=== PATIENT | female | born 1980 | race Caucasian/White ===

== ENCOUNTER 2017-03-08 20:07 | Emergency (ER) | payer SELFPAY ==
[~2017-03-08] VITALS: Ht 165.1 cm; Wt 83.9 kg
--- OUTSIDE RECORDS SUMMARY | 2017-03-08 20:45 | External Medical Summary Rpt | CCD ---
Author Author Conduent Organization Con[employer] Address Unknown Phone Unavailable Purpose Continuity of Care Document - through 2016
--- OUTSIDE RECORDS SUMMARY | 2017-03-08 20:45 | External Medical Summary Rpt | CCD ---
Author Author MAYELA Address Unknown Phone Purpose Continuity of Care Document - through 2016
--- OUTSIDE RECORDS SUMMARY | 2017-03-08 20:45 | External Medical Summary Rpt | CCD ---
Author Author MAYELA Address Unknown Phone [email or web address] Purpose Continuity of Care Document - through 2016
--- OUTSIDE RECORDS SUMMARY | 2017-03-08 20:46 | External Medical Summary Rpt ---
Author Author MAYELA Stewart, MAYELA Production Organization [employer] Address Unknown Phone Unavailable
--- OUTSIDE RECORDS SUMMARY | 2017-03-08 20:46 | External Medical Summary Rpt ---
Author Author MAYELA Stewart, MAYEAL Production Organization [employer] Address Unknown Phone Unavailable
--- OUTSIDE RECORDS SUMMARY | 2017-03-08 20:46 | External Medical Summary Rpt | CCD ---
Demographics Preferred Language Micronesian Marital Status Unknown Sabianist Affiliation Unknown Race Unknown Ethnic Group Unknown Author Author , MAYELA PEDRO Address Unknown Phone Immunization No patient found.
--- OUTSIDE RECORDS SUMMARY | 2017-03-08 20:46 | External Medical Summary Rpt | CCD ---
Demographics Preferred Language Azerbaijani Marital Status Unknown Denominational Affiliation Unknown Race Unknown Ethnic Group Unknown Author Author , MAYELA PEDRO Address Unknown Phone Immunization No patient found.
[2017-03-08 20:48] LABS: LYMPH # 2.3 K/mm3 (0.7-4.5); LYMPH % 29.7 % (10-50.0)
[2017-03-08 20:52] LABS: URINE BILIRUBIN - DIPSTICK NEGATIVE (NEG); URINE BLOOD 1+ (NEG)
--- NOTE | 2017-03-08 21:03 | Emergency Room Report ---
History of Present Illness Time Seen by 2000 Presenting Problem in Triage Pt arrived:Walked Presenting Problem:c/o vaginal bleeding and left sided abdominal pain since . Discharge has foul odor Onset of symptoms date/time:03/07/17/ or onset unknown for:MEDICAL HX UNKNOWN Treatment Prior to Arrival: COMPLIANCE REPRESENTATIVE Provided by: Sepsis Risk Assessment: Temp: 98 B/P: 136/74 MAP: 94 Pulse: 103 Resp: 18 Recent fever? N Clinical Suspician of Infection? Y Mental Status: 1 - Regular (Normal Baseline) Sepsis Risk:Possible Sepsis Risk Have you (or family members/close friends) recently traveled outside the [place]? N If Yes, where/when: Have you had exposure to infectious disease within the past month? N TB? Other? Specify: Source patient, RN notes reviewed, family, old records Exam Limitations no limitations Comment pt with lt lower abd pain with no fever or rash and has irreg vag bleeding Cardiac Chest Pain Chest pain indicative of cardiac No Timing/Duration this evening Severity moderate ALLERGIES Coded Allergies: Cephalosporins (03/08/17) Penicillins (03/08/17) cefaclor (03/08/17) History Medical History General CAD? No Angina: No AL: No Hypertension? No Hyperlipidemia? No CHF? No DVT? No PE? No COPD? No Asthma? No Anemia? Yes GERD? No Gastric ulcers? No GI Bleed? No Hernia? No Thyroid Problems? No Hypothyroidism? No CVA? No Seizures? No Diabetes? No Renal Insuffiency? No End Stage Renal Disease? No UTI? No Stones? No BPH? No GB Disease: No Nephritic Syndrome? No Asplenia? No Hepatitis? No Sickle Cell Disease? No Arthritis? No Migraines? No Cataracts? No Glaucoma? No MRSA? No HIV? No TB? No Anxiety? No Depression? No Cancer? 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 Respiratory denies cough, denies shortness of breath Cardiovascular denies chest pain, denies palpitations, denies syncope Gastrointestinal see HPI, abdominal pain, denies diarrhea, nausea, vomiting Genitourinary see HPI, discharge, abnormal vaginal bleeding. denies: dysuria, frequency, hesitancy, hematuria. Musculoskeletal denies back pain, denies neck pain Skin denies rash Psychiatric/Neurological denies headache, denies seizure Physical Exam Vital Signs Vital Signs Date Time Temp Pulse Resp B/P Pulse O2 O2 Flow FiO2 Ox Delivery Rate 03/08 2210 98.0 77 18 136/76 99 03/08 2038 18 03/08 2024 98.0 103 20 136/74 99 03/08 2011 98.0 103 20 136/74 99 - WBC >12,000 or <4,000 or 10% bands? 2 or more SIRS Criteria Met? B/P:136/74 MAP:94 Creatinine >2.0? UA output<0.5ml/kg/hr for 2 hrs? Platelet count >100,000? Lactate >2.0mmol/1? INR >1.2 or PTT > than 60 sec? Evidence of Organ Dysfunction? Provider documented clinical suspician of infection? Y Sepsis Criteria Count: 2 Sepsis Risk: Possible Sepsis Risk General Appearance no apparent distress Eye Exam - bilateral eye PERRL, bilateral eye EOMI Ear, Nose, Throat normal ENT inspection Neck supple Respiratory Status No: respiratory distress. Lung Sounds bilateral: lungs clear. Cardiovascular regular rate/rhythm Peripheral Pulses Pulses normal Yes Gastrointestinal soft, no organomegaly, no pulsatile mass, no guarding, no rebound, tenderness Back no CVA tenderness Extremities normal inspection Strength 4 Upper Ext (L), 4 Upper Ext (R), 4 Lower Ext (L), 4 Lower Ext (R) Pelvic normal external exam, tender w/ cervical motion, sl bleeding / no odor Nurse present during exam? Yes Neurologic alert, sports management internship II-XII nml as tested Reflexes Reflexes normal No Mental status normal mood/affect Skin intact Medical Decision Making LABS/Meds/Orders Pt receiving controlled substance in ED? No Results/Orders Laboratory Tests 03/08/172125: C.trachomatis DNA (RENZO) Pending, N.gonorrhoeae RNA Pending 03/08/172034: Lipase 151 03/08/172034: Lactic Acid 0.8 03/08/172034: Sodium 140, Potassium 3.7, Chloride 104, Carbon Dioxide 24, BUN 14, Creatinine 0.7, Estimated Creat Clear 149, Estimated GFR (MDRD) 95, Glucose 94, Calcium 9.3 , Total Bilirubin 0.4, AST 19, ALT 22, Alkaline Phosphatase 94, Total Protein 8.2, Albumin 4.4, Globulin 3.8 H, Albumin/Globulin Ratio 1.2, WBC 7.8, RBC 4.88 , Hgb 12.0 L, Hct 37.7, MCV 77.3 L, RDW 14.5, Plt Count 323, MPV 8.4, Gran % 60.6, Gran # 4.7, Lymphocytes % 29.7, Monocytes % 6.0, Eosinophils % 3.1, Basophils % 0.5, Lymphocytes # 2.3, Monocytes # 0.5, Eosinophils # 0.3, Basophils # 0.0, PUBS MCHC 31.8, MCH 24.6 L, Urine Color YELLOW, Urine Appearance CLEAR, Urine pH 6.0, Ur Specific [place] 1.020, Urine Protein NEGATIVE, Urine Ketones NEGATIVE, Urine Blood 1+ H, Urine Nitrate NEGATIVE, Urine Bilirubin NEGATIVE, Urine Urobilinogen 0.2, Ur Leukocyte Esterase NEGATIVE , Urine RBC 3-5, Ur Squamous Epith Cells 3-5, Amorphous Sediment TRACE, Urine Mucus TRACE, Urine Glucose NEGATIVE Current Medication Orders Sig/Li Start time Last Medication Dose Route Stop Time Status Admin Iopamidol 75 ML ONCE ONE 03/08 2230 UNV 03/08 IV 03/08 2231 2221 Sodium Chloride 10 ML PRN PRN 03/08 2230 UNV 03/08 IV 03/080 2221 Diatrizoate Meglum/ 30 ML ONCE ONE 03/08 2045 DC 03/08 Diatrizoate Sod PO 03/08 Ketorolac 30 MG ONCE ONE 03/08 2045 DC 03/08 Tromethamine IV 03/08 Ondansetron HCl 4 MG ONCE ONE 03/08 2045 DC 03/08 IV 03/08 Sodium Chloride 1,000 ML .Q1H1M 03/08 2045 DC 03/08 IV 03/08 Sodium Chloride 10 ML PRN PRN 03/08 2045 AC IV 03/09 2032 Sodium Chloride 10 ML PRN PRN 03/08 2045 AC IV 03/09 2034 Diatrizoate Meglum/ 0 .STK-MED ONE 03/08 2035 DC Diatrizoate Sod .ROUTE Ketorolac 0 .STK-MED ONE 03/08 2034 DC Tromethamine .ROUTE Ondansetron HCl 0 .STK-MED ONE 03/08 2034 DC .ROUTE Sodium Chloride 1,000 ML .STK-MED ONE 03/08 2034 DC IV Orders Procedure Date/time Status DIET-NOTHING BY MOUTH 03/[address] ABD & PELVIS W/ CONTRAST 03/08 2204 Active WET PREP 03/08 2157 Complete LIPASE 03/08 2157 Complete CHLAMYDIA/GC 03/[address] ABD/PELVIS REQ 03/08 2035 Active IV SALINE LOCK 03/08 2035 Active CULTURE, BLOOD 03/08 2035 Active URINALYSIS/COMPLETE 03/08 2035 Complete URINE 03/08 2035 Complete LACTIC ACID 03/08 2035 Complete CBC WITH AUTO DIFF 03/08 2035 Complete CHEM 12 PROFILE 03/08 2035 Complete XRAY/CT/US XRAY/CT/US CT abdomen, pelvis CT interpretation by reviewed by me Time results known: 2302 CT Results abnormal (see report) Departure Departure Time of Disposition 2299 Disposition DC Home or Self Care(routine) Clinical Impression Primary Impression: Pelvic pain Secondary Impressions: Cholelithiasis Qualifiers: Cholelithiasis location: gallbladder Cholecystitis presence: without cholecystitis Biliary obstruction: without biliary obstruction Qualified Code: K80.20 - Calculus of gallbladder without cholecystitis without obstruction Condition STABLE Referrals Antwan Montes MD discussed with dr montes Patient Instructions DI for Pelvic Pain Additional Instructions use meds and see pcp and dr montes for follow up Discharge Counseling Counseled pt/family regarding diagnosis, test results, medications/RX, follow up needs Prescriptions Current Visit Scripts Clindamycin Hcl (Clindamycin 300MG) 300 MG PO TID #30 CAP ED Critical Care Critical Care No at 2306
[2017-03-08] MEDS ORDERED: CLINDAMYCIN HC300 MG PO (23:06)
[2017-03-09 00:15] VITALS: BP 136/90
--- NOTE | 2017-03-09 05:21 | RADIOLOGY REPORT PS360 ---
CT ABD PELVIS W/ CONTRAST CLINICAL INDICATION: Abdominal pain, left lower quadrant pain, prior gastric bypass LLQ PAIN ORDERING PHYSICIAN: Venita Palma MD PATIENT AGE: 36 years COMPARISON: None TECHNIQUE: Axial images obtained with sagittal and coronal reformats. PROCEDURE: Oral Contrast: None IV Contrast: 75 mL's of Isovue-370 . FINDINGS: Lung base images are unremarkable. Liver, spleen, adrenal glands, pancreas, kidneys, ureters, and urinary bladder have an unremarkable appearance. Gallbladder is slightly distended with small stones. Scattered small lymph nodes are present in the retroperitoneum and right lower quadrant and mesenteric axis. Prior gastric bypass with postsurgical change. No evidence of appendicitis or diverticulitis. No pelvic mass or abnormal fluid collection. No abdominal wall hernia. No acute bony findings. IMPRESSION: 1. Distended gallbladder with cholelithiasis. This may be confirmed with ultrasound. 2. Prior gastric bypass. 3. Otherwise negative CT abdomen pelvis
[2017-03-11 03:41] LABS: Neisseria gonorrhoeae, NAA Negative (Negative)
== END 2017-03-09 00:15 | disposition home or self-care (01) ==
LOC: ER 20:07
PROVIDERS: Emergency Medicine
DX: R52 Pain, unspecified (principal); R10.2 Pelvic and perineal pain; K80.20 Calculus of gallbladder without cholecystitis without obstruction; Z88.0 Allergy status to penicillin
CPT/HCPCS: J2405; Q9967

== ENCOUNTER 2017-04-15 11:28 | Emergency (ER) | payer MEDICAID ==
[~2017-04-15] VITALS: Ht 165.1 cm; Wt 93.0 kg
[~2017-04-15 11:28] MED LIST: CLINDAMYCIN HC300 MG PO
--- OUTSIDE RECORDS SUMMARY | 2017-04-15 11:32 | External Medical Summary Rpt | CCD ---
Author Author , MAYELA Organization MAYELA Address Unknown Phone [email or web address] Purpose Continuity of Care Document - 03-08-2017 through 2016 Problems Code Diagnosis DOS Provider Status K80.20 CALCULUS OF GALLBLADDER W/O CHOLECYSTIT IS W/O OBSTRUCTION R10.2 PELVIC AND PERINEAL PAIN Results Labs Lab Lab Date Result Refere Interp Status Commen Order Detail nces retati t Range on Chlamydia/GC Amplification (03-08-2017 21:26) Neisser Negativ Negativ complet ia 017 e e ed gonorrh 21:26 Negativ oeae e L rRNA detecti on by Comment: Performed at: = - [facility] Comment: [address], [place] [phone] Comment: Furrier Designer: Maria Dolores Gil MD, Phone: [phone] Chlamyd Negativ Negativ complet ia RNA 017 e e ed TMA 21:26 Negativ e L Comprehensive metabolic panel (03-08-2017 20:35) Protein = 8.2 6.4-8.2 complet total 017 gm/dL ed ser/alycia 20:35 s ALT = 22 12-78 complet (SGPT) 017 U/L ed ser/alycia 20:35 s Serum = 19 15-37 complet or 017 U/L ed plasma 20:35 asparta te aminotr ansfera Serum = 140 136-145 complet sodium 017 mmoL/L ed measure 20:35 ment Serum = 3.7 3.5-5.1 complet potassi 017 mmoL/L ed um 20:35 measure ment Serum = 94 74-106 complet or 017 mg/dL ed plasma 20:35 glucose measure ment (mas Serum = 3.8 1.3-3.2 complet globuli 017 gm/dL ed n 20:35 measure ment (mass/v olume) Estimat = 95 59- complet ed 017 ML/MIN ed glomeru 20:35 lar filtrat ion rate (GF Comment: REFERENCE RANGE: >60 ML/MIN/1.73 SQUARE METERS Comment: If this patient is -Palauan, then multiply the Comment: result by 1.210. Estimat = 149 50-200 complet ion of 017 ML/MIN ed creatin 20:35 ine renal clearan ce Serum = 0.7 0.55-1. complet or 017 mg/dL 02 ed plasma 20:35 creatin ine measure ment ( Carbon = 24 21.0-32 complet dioxide 017 mmoL/L .0 ed 20:35 measure ment Serum = 104 98-107 complet or 017 mmoL/L ed plasma 20:35 chlorid e measure ment (mo Serum = 9.3 8.5-10. complet or 017 mg/dL 1 ed plasma 20:35 calcium measure ment (mas Serum = 14 7-18 complet or 017 mg/dL ed plasma 20:35 urea nitroge n measure men Serum = 0.4 0.2-1.0 complet or 017 mg/dL ed plasma 20:35 total bilirub in measure m Serum = 94 46-116 complet or 017 U/L ed plasma 20:35 alkalin e phospha tase ciera Serum = 4.4 3.4-5.0 complet or 017 gm/dL ed plasma 20:35 albumin measure ment (mas Serum = 1.2 1.1-1.8 complet or 017 ed plasma 20:35 albumin /globul in mass ra Blood lactic acid measurement (moles/vol (03-08-2017 20:35) Blood = 0.8 0.4-2.0 complet lactic 017 mmol/L ed acid 20:35 measure ment (moles/ vol CBC w auto diff (03-08-2017 20:35) Blood = 7.8 4.8-10. complet leukocy 017 K/MM3 8 ed meredith 20:35 count (number /volume ) Automat = 14.5 11.5-17 complet ed 017 % .5 ed erythro 20:35 cyte distrib ution width Red = 4.88 4.2-5.4 complet blood 017 M/mm3 ed cell 20:35 count Blood = 323 142-424 complet platele 017 K/mm3 ed t count 20:35 Automat = 8.4 7.4-10. complet ed 017 fl 4 ed blood 20:35 platele t mean volume c[place] % = 6.0 % 1.7-9.3 complet 017 ed 20:35 Absolut = 0.5 0.1-1.0 complet e 017 K/mm3 ed monocyt 20:35 e count Automat = 77.3 82.2-97 complet ed 017 fl .8 ed erythro 20:35 cyte mean corpusc ular v Automat = 31.8 31.8-35 complet ed 017 g/dl .4 ed erythro 20:35 cyte mean corpusc ular h Mean = 24.6 27-31.2 complet corpusc 017 pg ed ular 20:35 hemoglo bin (MCH) determ Lymphoc = 29.7 10-50.0 complet yte 017 % ed count, 20:35 blood, automat ed Absolut = 2.3 0.7-4.5 complet e 017 K/mm3 ed lymphoc 20:35 yte count Blood = 12.0 12.2-16 complet hemoglo 017 g/dL .2 ed bin 20:35 measure ment (mass/v olum Blood = 37.7 37.0-47 complet hematoc 017 % .0 ed rit 20:35 (volume fractio n) Granulo = 60.6 37.0-80 complet cyte 017 % .0 ed percent 20:35 age Blood = 4.7 1.8-7.8 complet granulo 017 K/mm3 ed cytes 20:35 automat ed count (numb Automat = 3.1 % 0.1-12. complet ed 017 0 ed blood 20:35 eosinop hils/10 0 leukocy t Automat = 0.3 0.0-0.4 complet ed 017 K/mm3 ed blood 20:35 eosinop hil count Baso % = 0.5 % 0.1-2.0 complet 017 ed 20:35 Automat 2 = 0.0 0-0.2 complet ed 017 K/MM3 ed blood 20:35 basophi l count (count/ vo Urine test (03-08-2017 20:35) Urine = NEG complet pregnan 017 NEGATIV ed cy test 20:35 E Lipase measurement (03-08-2017 20:35) Lipase = 151 73-393 complet measure 017 U/L ed ment 20:35 Urinalysis with microscopy (03-08-2017 20:35) Urine 0.2 0.2 NEG complet urobili 017 L ed nogen 20:35 E.U./dL detecti on by test str [place] 3-5 3-5 0-5 complet s 017 L ed epithel 20:35 #/hpf ial cells detecti on in u Urine = 1.020 1.005-1 complet specifi 017 .030 ed c 20:35 gravity measure ment Erythro 3-5 3-5 0 complet cytes 017 L ed detecti 20:35 rbc/hpf on in urine sedimen t Urine = NEG complet protein 017 NEGATIV ed 20:35 E mg/dL measure ment by automat ed t Urine = 6.0 5.0-8.5 complet pH 017 ed 20:35 Urine NEGATIV NEG complet nitrite 017 E ed 20:35 NEGATIV detecti E L on by test strip Mucus TRACE OCC complet detecti 017 TRACE L ed on in 20:35 urine sedimen t by lig Mucus NEGATIV NEG complet detecti 017 E ed on in 20:35 NEGATIV urine E L sedimen t by lig Urine NEGATIV NEG complet ketones 017 E ed 20:35 NEGATIV detecti E L on by mg/dL automat ed meredith Glucose = NEG complet ur 017 NEGATIV ed test 20:35 E strip Urine 03-08- YELLOW YELLOW complet color 017 YELLOW ed 20:35 L Urine 03-08-2 1+ 1+ L NEG complet blood 017 ed detecti 20:35 on Amorpho TRACE NONE complet us 017 TRACE L ed sedimen 20:35 t detecti on in urine se Urine CLEAR CLEAR complet appeara 017 CLEAR L ed nce 20:35 determi nation Urine NEGATIV NEG complet total 017 E ed bilirub 20:35 NEGATIV in E L detecti on by test
--- OUTSIDE RECORDS SUMMARY | 2017-04-15 11:32 | External Medical Summary Rpt | CCD ---
Author Author , MAYELA Organization MAYELA Address Unknown Phone [email or web address] Purpose Continuity of Care Document - 03-08-2017 [...] by Comment: Performed at: = - [facility] Comment: [address], [place] [phone] Comment: Mechanical Systems Engineer: Maria Dolores Gil MD, Phone: [phone] Chlamyd Negativ Negativ complet ia RNA 017 [...] SQUARE METERS Comment: If this patient is -Bahamian, then multiply the Comment: result by 1.210. [...] blood 20:35 platele t mean volume ciera [place] % = 6.0 % 1.7-9.3 complet 017 [...]
--- OUTSIDE RECORDS SUMMARY | 2017-04-15 11:32 | External Medical Summary Rpt | CCD ---
Demographics Preferred Language Turkmen Marital Status Unknown Orthodoxy Affiliation Unknown Race Unknown Ethnic Group Unknown Author Author , MAYELA PEDRO Address Unknown Phone [email or web address] [email or web address] Name Date Rout CVX Reac Dose Comm Prov Is Faci e tion ent ider Refu lity Give sed n Td 02- 9 999 Hist H149 No H149 (sugar 4-19 [facility] lt), 97 al Info adso rmat rbed ion - Sour ce Unsp ecif ied
--- OUTSIDE RECORDS SUMMARY | 2017-04-15 11:32 | External Medical Summary Rpt | CCD ---
Demographics Preferred Language Japanese Marital Status Unknown Uatsdin Affiliation Unknown Race Unknown Ethnic Group Unknown Author Author , MAYELA PEDRO Address Unknown Phone [email or web address] Immunization Name Date Rout CVX Reac Dose Comm Prov Is Faci e tion ent ider Refu lity Give sed n Td 02- 9 999 Hist H149 No H149 (sugar 4-19 [facility] lt), 97 al Info adso rmat rbed ion - Sour ce Unsp ecif ied
[2017-04-15] MEDS ORDERED: ZITHROMAX Z PA250 MG PO (11:57)
[2017-04-15] MEDS ORDERED: MEDROL 4MG. DOSE4 MG PO (12:01)
[2017-04-15] MEDS ORDERED: BROMFED DM COU118 ML PO (12:01)
[2017-04-15] MEDS ORDERED: FLONASE 50 MCG16 GM (12:01)
[2017-04-15 12:02] LABS: UTC STREP SCREEN NOT DETECTED (NOTDETECTED)
--- NOTE | 2017-04-15 12:02 | Urgent Treatment Center Report ---
History of Present Issue Date/Time Seen by Provider 04/15/17 1143 Visit Reason Pt arrived:Walked Presenting Problem:PT IS C/O FEVER, SORE THROAT, CONGESTION, AND COUGH Location if Accident: Onset of symptoms date/time:/ or onset unknown for:MEDICAL HX UNKNOWN Have you (or family members/close friends) recently traveled outside the [place]? N If Yes, where/when: Have you had exposure to infectious disease within the past month? TB? Other? Specify: Patient state that her children have been sick for several days States that she is now getting sick State that yesterday she began to run a fever last night and having sore throat, congestion and cough State that today she is having body aches and chills ALLERGIES Coded Allergies: Cephalosporins (03/08/17) Penicillins (03/08/17) cefaclor (03/08/17) History Medical History General CAD? No Angina: No [place]: No Hypertension? No Hyperlipidemia? No CHF? No DVT? No PE? No COPD? No Asthma? No Anemia? Yes GERD? No Gastric ulcers? No GI Bleed? No Hernia? No Thyroid Problems? No Hypothyroidism? No CVA? No Seizures? No Diabetes? No Renal Insuffiency? No UTI? No Stones? No BPH? No GB Disease: No Nephritic Syndrome? No Asplenia? No Hepatitis? No Sickle Cell Disease? No Arthritis? No Migraines? No Cataracts? No Glaucoma? No MRSA? No HIV? No TB? No Anxiety? No Depression? No Cancer? No Immunization HX DT/Tetanus Unknown Surgical Hx Previous Surgery?Y *DX LSC'S 1997 ENDOMETRIOSIS TONSILECTOMY GASTRIC BYPASS 2011 APPENDECTOMY D AND C 2011 Family History Family HX Diabetes No CAD Yes Hypertension No Hyperlipidemia No Cancer No TB No Social History Smoking Hx Smoker: Never Smoker Tobacco: No Alcohol Alcohol: Yes Review of Systems All Other Systems Reviewed and Negative Constitutional chills, fever ENT nose congestion, throat pain. Respiratory cough, denies shortness of breath, denies wheezing Physical Exam Vital Signs Vital Signs Date Time Temp Pulse Resp B/P Pulse O2 O2 Flow FiO2 Ox Delivery Rate 04/15 1137 98.6 118 20 133/85 98 General Appearance normal appearance, WD/WN, no apparent distress Ear, Nose, Throat tonsillar swelling, Throat red, irritated drainage noted, tenderness maxillary sinuses Respiratory Status Yes: trachea midline, chest symmetrical. No: respiratory distress. Lung Sounds bilateral: normal breath sounds, lungs clear. Cardiovascular normal exam, regular rate/rhythm, no peripheral edema Gastrointestinal normal bowel sounds, normal exam, non tender, no guarding, no rebound Neurologic alert, normal exam, oriented x 3 Medical Decision Making LABS/Meds/Orders Pt receiving controlled substance in ED? No Results/Orders Laboratory Tests 04/15/17 1134: Influenza Type A Ag Pending, Influenza Type B Ag Pending, Group A Strep Screen Pending Orders Procedure Date/time Status [facility] STREP SCREEN 04/15 113 Active [facility] FLU A,B 04/15 113 Active Departure Departure Time of Disposition 1154 Disposition DC Home or Self Care(routine) Clinical Impression Primary Impression: Upper respiratory infection Qualifiers: URI type: unspecified URI Qualified Code: J06.9 - Acute upper respiratory infection, unspecified Condition STABLE Patient Instructions Cough, DI for Fever (Symptom) -- Adult, DI for Sinusitis Additional Instructions * Monitor Temp. Tylenol and/or Ibuprofen as needed. ER if fever is no less than 101 despite alternating Tylenol and Ibuprofen * Encourage fluids, water, Gatorade, powerade, pedialyte if infant/toddler/or child * Warm salt water gargles for throat irritation *Warm fluids *Sore throat lozenges *Sleep elevated *humidifier or vaporizer Lots of rest Increase fluids, water, Gatorade, powerade *Flonase 2 sprays each nostril daily but may take 2-3 days to notice improvement with it *Bromfed may cause drowsiness. Know how it effect you or your child. Before driving, caring for small children or sending your child to school *Your throat swab was sent to lab for culture. Those results area typically sent to your primary care physician. Be sure to follow up in 2-3 days if no improvement so they can review those results and treat if necessary If you dont have primary care I recommend you get one, but in the mean time you will have to return to a walk in clinic Follow up IMMEDIATELY for new or worsening of symptoms OR no noticeable improvement over the next 48-72 hours. 911 immediately for any life threatening symptoms such as chest pain or difficulty breathing Discharge Counseling Counseled pt/family regarding diagnosis, medications/RX, home care, follow up needs Prescriptions Current Visit Scripts Azithromycin (Zithromycin (Z-FILI) 250MG Tab) 250 MG PO DAILY #6 TAB TAKE TWO (2) TABLETS ON DAY 1, THEN ONE (1) TABLET DAY #2 THRU #5 D-METHORPHAN HB/P-EPD HCL/BPM (Bromfed Dm Cough Syrup) 10 ML PO Q4HP PRN cough #120 SYR Methylprednisolone (Medrol Dose Fili) 4 MG PO UD #1 FILI TAKE DIRECTED ON PACKAGING Fluticasone Propionate (Flonase 50 Mcg Nasal [place]) 2 SPRAY NA DAILY #1 BOT at 1201
[2017-04-15 12:03] VITALS: BP 133/85
== END 2017-04-15 12:04 | disposition home or self-care (01) ==
LOC: UTC 11:28
PROVIDERS: Nurse Practitioner
DX: J06.9 Acute upper respiratory infection, unspecified (principal); D64.9 Anemia, unspecified